=== PATIENT | female | born 1995 | race American Indian/Alaskan Native ===

== ENCOUNTER 2016-08-25 18:02 | Emergency (ER) | payer MEDICAID ==
[2016-08-25 19:22] VITALS: BP 124/75
[2016-08-25 19:47] LABS: Basophils % (Auto) 0.9 % (0.0-1.8); Eosinophils % (Auto) 1.2 % (0.0-4.3); Hematocrit 37.7 % (30.3-42.9); Hemoglobin 12.8 gm/dl (10.1-14.3); Mean Corpuscular HGB Conc 34 % (30-34); Mean Corpuscular Hemoglobin 31 pg (28-32); Mean Corpuscular Volume 91 fl (79-97); Platelet Count 183 K/mm3 (140-440); Red Blood Count 4.15 M/mm3 (3.65-5.03); Red Cell Distribution Width 13.1 % (13.2-15.2); White Blood Count 5.3 K/mm3 (4.5-11.0)
[2016-08-25 19:55] LABS: Alanine Aminotransferase 20 units/L (7-56); Albumin 4.2 g/dL (3.9-5); Albumin/Globulin Ratio 1.8 %; Alkaline Phosphatase 53 units/L (35-129); Anion Gap 16 mmol/L; BUN/Creatinine Ratio 13.75; Blood Urea Nitrogen 11 mg/dL (7-17); Calcium 9.3 mg/dL (8.4-10.2); Carbon Dioxide 25 mmol/L (22-30); Chloride 103.8 mmol/L (98-107); Glucose 100 mg/dL (65-100); Lipase 30 units/L (13-60); Potassium 4.1 mmol/L (3.6-5.0); Sodium 141 mmol/L (137-145); Total Protein 6.6 g/dL (6.3-8.2)
--- NOTE | 2016-08-30 01:01 | ED Elopement Review ---
ED Pt Elopement review - Results review Lab results: Laboratory Tests 08/25/16 08/25/16 19:26 19:26 WBC 5.3 RBC 4.15 Hgb 12.8 Hct 37.7 MCV 91 MCH 31 MCHC 34 RDW 13.1 L Plt Count 183 Lymph % (Auto) 43.0 H Garland % (Auto) 5.3 Eos % (Auto) 1.2 Baso % (Auto) 0.9 Lymph # 2.3 Garland # 0.3 Eos # 0.1 Baso # 0.0 Seg Neutrophils % 49.6 Seg Neutrophils # 2.6 Sodium 141 Potassium 4.1 Chloride 103.8 Carbon Dioxide 25 Anion Gap 16 BUN 11 Creatinine 0.8 Estimated GFR > 60 BUN/Creatinine Ratio 13.75 Glucose 100 Calcium 9.3 Total Bilirubin 0.60 AST 20 ALT 20 Alkaline Phosphatase 53 Total Protein 6.6 Albumin 4.2 Albumin/Globulin Ratio 1.8 Lipase 30 - Call Back decision Pt Call Back Decision: No action required
== END 2016-08-26 02:00 | disposition left against medical advice (07) ==
LOC: ED 18:02
DX: R10.9 Unspecified abdominal pain (principal); Z53.21 Procedure and treatment not carried out due to patient leaving prior to being seen by health care provider
CPT/HCPCS: 36415; 80053; 83690; 85025